=== PATIENT | female | born 1980 | race African-American/Black ===

== ENCOUNTER 2020-05-21 20:54 | Inpatient (IN) | payer OTHER ==
[2020-05-21 21:34] VITALS: BMI 21.9
--- NOTE | 2020-05-21 22:25 | HP ---
CIWA Score Nausea/Vomitin (vomiting x 2) Muscle Tremors: 3 Anxiety: 4-Mod. Anxious/Guarded Agitation: 4-Moderately Restless Paroxysmal Sweats: 2 Orientation: 0-Oriented Tacttile Disturbances: 0-None Auditory Disturbances: 0-None Visual Disturbances: 0-None Headache: 2-Mild CIWA-Ar Total Score: 18 - Admission Criteria OASAS Guidelines: Admission for Medically Managed Detox: Requires at least one of the followin. CIWA greater than 12 2. Seizures within the past 24 hours 3. Delirium tremens within the past 24 hours 4. Hallucinations within the past 24 hours 5. Acute intervention needed for co occurring medical disorder 6. Acute intervention needed for co occurring psychiatric disorder 7. Severe withdrawal that cannot be handled at a lower level of care (continued vomiting, continued diarrhea, abnormal vital signs) requiring intravenous medication and/or fluids 8. Admitting History and Physical - Past Medical History ...LMP: 05/28/13 - Smoking History Smoking history: Current every day smoker Have you smoked in the past 12 months: Yes Aproximately how many cigarettes per day: 5 - Alcohol/Substance Use Hx Alcohol Use: Yes Admission ROS [facility] Chief Complaint: Seeking admission to detox from alcohol Allergies/Adverse Reactions: Allergies Allergy/AdvReac Type Severity Reaction Status Date / Time No Known Allergies Allergy Verified 05/21/20 22:59 History of Present Illness: 40 years old female with a long history of alcohol dependence (since age 24 years) is seeking admission to detox. Patient's last admission at [facility] was for the period 06/14/2013 - 06/18/2013 and she reports a year of sobriety. Her last detox was at [facility] and she relapsed a couple of days post discharge. She has medical history of asthma and psych. history of depression and bipolar disorder. She reports suicide attempt 5 years ago and denies suicidal ideation at this time. 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 She is unemployed on [employer], lives with her sister and denies any legal issues. Exam Limitations: No Limitations - Ebola screening Have you traveled outside of the country in the last 21 days: No Have you had contact with anyone from an Ebola affected area: No Have you been sick,other than usual withdrawal symptoms: No Do you have a fever: No - Review of Systems Constitutional: Chills, Malaise, Night Sweats, Changes in sleep EENT: reports: Nose Congestion Respiratory: reports: No Symptoms reported Cardiac: reports: No Symptoms Reported GI: reports: Nausea, Poor Fluid Intake, Vomiting (x 2), Abdominal cramping : reports: No Symptoms Reported Musculoskeletal: reports: Back Pain, Neck Pain Integumentary: reports: Dryness, Flushing Neuro: reports: Headache, Tremors Endocrine: reports: No Symptoms Reported Hematology: reports: No Symptoms Reported Psychiatric: reports: Orientated x3, Anxious, Depressed Other Systems: Reviewed and Negative Patient History - Patient Medical History Hx Anemia: No Hx Asthma: Yes (mdi-albuterol) Hx Chronic Obstructive Pulmonary Disease (COPD): No Hx Cancer: No Hx Cardiac Disorders: No Hx Congestive Heart Failure: No Hx Hypertension: No Hx Hypercholesterolemia: No Hx Pacemaker: No HX Cerebrovascular Accident: No Hx Seizures: No Hx Dementia: No Hx Diabetes: No Hx Gastrointestinal Disorders: No Hx Liver Disease: No Hx Genitourinary Disorders: No Hx Sexually Transmitted Disorders: No Hx Renal Disease (ESRD): No Hx Thyroid Disease: No Hx Human Immunodeficiency Virus (HIV): No (Negative 2019) Hx Hepatitis C: No Hx Depression: Yes Hx Suicide Attempt: Yes (2010-pill od, denies suicidal ideation at this time) Hx Bipolar Disorder: Yes (multiple admissions >6) Hx Schizophrenia: No - Patient Surgical History Past Surgical History: Yes Hx Neurologic Surgery: No Hx Cataract Extraction: No Hx Cardiac Surgery: No Hx Lung Surgery: No Hx Breast Surgery: No Hx Breast Biopsy: No Hx Abdominal Surgery: No Hx Appendectomy: No Hx Cholecystectomy: No Hx Genitourinary Surgery: No Hx Section: No Hx Orthopedic Surgery: Yes (Left knee 2014) Anesthesia Reaction: No - PPD History Previous Implant?: Yes Documented Results: Positive w/o proof Date: 06/16/13 PPD to be Administered?: Yes - Reproductive History Patient is a Female of Child Bearing Age (11 -55 yrs old): Yes Last Menstrual Period: 04/27/20 Patient : No - Smoking Cessation Smoking history: Current every day smoker Have you smoked in the past 12 months: Yes Aproximately how many cigarettes per day: 10 Hx Chewing Tobacco Use: No Initiated information on smoking cessation: Yes 'Breaking Loose' booklet given: 05/21/20 - Substance & Tx. History Hx Alcohol Use: Yes Hx Substance Use: No Substance Use Type: Alcohol, Cocaine, Marijuana Hx Substance Use Treatment: No - Substances abused Alcohol Substance route: Oral Frequency: Daily Amount used: 2 Pints Vodka Age of first use: 24 Date of last use: 05/21/20 Admission Physical Exam [facility] - Vital Signs Vital Signs: Vital Signs - 24 hr 05/21/20 21:31 Temperature 96.6 F L Pulse Rate 77 Respiratory 18 Rate Blood Pressure 105/76 - Physical General Appearance: Yes: Moderate Distress, Tremorous, Sweating HEENTM: Yes: Within Normal Limits, Hearing grossly Normal Respiratory: Yes: Lungs Clear, Normal Breath Sounds, No Respiratory Distress Neck: Yes: Within Normal Limits Breast: Yes: Breast Exam Deferred Cardiology: Yes: Regular Rhythm, Regular Rate Abdominal: Yes: Normal Bowel Sounds, Soft Genitourinary: Yes: Within Normal Limits Back: Yes: Normal Inspection Musculoskeletal: Yes: Back pain, Other (neck pain) Extremities: Yes: Tremors Neurological: Yes: Within Normal Limits Integumentary: Yes: Warm Lymphatic: Yes: Within Normal Limits - Diagnostic (1) Alcohol dependence with withdrawal, uncomplicated Current Visit: Yes Status: Acute (2) Asthma Current Visit: Yes Status: Chronic Qualifiers: Asthma severity: mild Asthma persistence: intermittent (3) Nicotine dependence Current Visit: Yes Status: Chronic Qualifiers: Nicotine product type: cigarettes Substance use status: uncomplicated Qualified Code(s): F17.210 - Nicotine dependence, cigarettes, uncomplicated (4) Depression Current Visit: Yes Status: Chronic (5) Bipolar disorder Current Visit: Yes Status: Chronic Cleared for Admission [facility] - Detox or Rehab [facility] Level of Care: Medically Managed Detox Regimen/Protocol: Librium Claeared for Rehab Admission: No Breathalyzer - Breathalyzer Breathalyzer: 0 Urine Drug Screen - Test Device Lot number: [id number] Expiration date: 06/24/21 - Control Is test valid?: Yes - Results Drug screen NEGATIVE: No Urine drug screen results: THC-Marijuana, ALBERT-Cocaine Inpatient Rehab Admission - Rehab Decision to Admit Inpatient rehab admission?: No
[2020-05-21] MEDS ORDERED: IBUPROFEN 400 MG TABLET (FP) PO PRN (22:46)
[2020-05-21] MEDS ORDERED: MAGNESIUM CITRATE 300 ML BOTTLE PO PRN (22:46)
[2020-05-21] MEDS ORDERED: MAGNESIUM HYDROX 2400MG/30ML ORAL SUSPENSION 30 ML CUP PO PRN (22:46)
[2020-05-21] MEDS ORDERED: ONDANSETRON *ODT* 4 MG TABLET SL ONE (22:46)
[2020-05-21] MEDS ORDERED: NICOTINE POLACRILEX 2 MG GUM BUC PRN (22:46)
[2020-05-21] MEDS ORDERED: BISMUTH SUBSALICYLATE 524 MG/30 ML UD PO PRN (22:46)
[2020-05-21] MEDS ORDERED: METHOCARBAMOL 500 MG TABLET PO PRN (22:46)
[2020-05-21] MEDS ORDERED: MENTHOL/PHENOL 1 EACH UD MM PRN (22:46)
[2020-05-21] MEDS ORDERED: ACETAMINOPHEN 325 MG TABLET (FP) PO PRN ×2 (22:46)
[2020-05-21] MEDS ORDERED: MAG HYDROX/AL HYDROX/SIMETH 30 ML UNIT-DOSE CUP PO PRN (22:46)
[2020-05-21] MEDS ORDERED: hydrOXYzine PAMOATE 25 MG CAPSULE (FP) PO PRN (22:46)
[2020-05-21] MEDS ORDERED: chlordiazePOXIDE HCL 25 MG CAPSULE PO PRN (22:46)
[2020-05-21] MEDS: chlordiazePOXIDE HCL 25 MG CAPSULE PO SCH (23:31)
[2020-05-22] MEDS: chlordiazePOXIDE HCL 25 MG CAPSULE PO SCH ×4 (05:59→22:41)
--- NOTE | 2020-05-22 09:24 | EKG ---
Test Reason : Blood Pressure : / mmHG Vent. Rate : 068 BPM Atrial Rate : 068 BPM P-R Int : 164 ms QRS Dur : 086 ms QT Int : 410 ms P-R-T Axes : 064 064 057 degrees QTc Int : 435 ms NORMAL SINUS RHYTHM NORMAL ECG NO PREVIOUS ECGS AVAILABLE Confirmed by MD JONEL, IVORY ([id number]) on 05/22/2020 9:24:02 AM Referred By: Blu Roper Confirmed By:IVORY REMY MD
--- NOTE | 2020-05-22 09:49 | PN ---
S CIWA - CIWA Score Nausea/Vomitin-No Nausea/No Vomiting Muscle Tremors: 3 Anxiety: 3 Agitation: 3 Paroxysmal Sweats: 3 Orientation: 0-Oriented Tacttile Disturbances: 0-None Auditory Disturbances: 0-None Visual Disturbances: 0-None Headache: 0-None Present CIWA-Ar Total Score: 12 [facility] Progress Note (SOAP) Subjective: sweats sleepy tired interrupted sleep shakes Objective: 05/22/20 09:48 Vital Signs Temperature 97.3 F L 05/22/20 05:34 Pulse Rate 67 05/22/20 05:34 Respiratory Rate 18 05/22/20 05:34 Blood Pressure 108/64 05/22/20 05:34 O2 Sat by Pulse Oximetry (%) 99 05/22/20 05:34 Laboratory Tests 05/21/20 21:34 POC Urine HCG, Qual Negative rest of labs pending aaox3 ambulating no acute distress Assessment: 05/22/20 09:48 withdrawals Plan: continue detox increase fluids pending labs
[2020-05-22 09:53] LABS: HEMATOCRIT 38.2 % (32.4-45.2); HEMOGLOBIN 12.4 GM/dL (10.7-15.3); MCH 31.2 pg (25.7-33.7); MCHC 32.5 g/dl (32.0-36.0); MEAN CELL VOLUME 96.2 fl (80-96); MEAN PLT VOLUME 9.3 fl (7.5-11.1); PLATELET COUNT 230 K/MM3 (134-434); RBC 3.97 M/mm3 (3.60-5.2); RDW 13.4 % (11.6-15.6); WHITE BLOOD COUNT 4.4 K/mm3 (4.0-10.0)
[2020-05-22 10:11] LABS: BILIRUBIN,TOTAL 0.2 mg/dL (0.2-1); BLOOD UREA NITROGEN 14.5 mg/dL (7-18); CALCIUM 8.7 mg/dL (8.5-10.1); CREATININE 0.9 mg/dL (0.55-1.3); POTASSIUM 3.9 mmol/L (3.5-5.1); TOT PROT 6.3 g/dl (6.4-8.2)
[2020-05-22] MEDS: NICOTINE 14 MG/24 HOURS TOPICAL PATCH TD SCH (10:53)
[2020-05-22] MEDS: PRENATAL VITAMINS W/ FOLIC ACID TABLET (FP) PO SCH (10:53)
--- NOTE | 2020-05-22 13:57 | PN ---
[facility] Progress Note Note: Dock Pumper attempted several times to see patient. She is very sedated with no response to verbal stimuli(loudly calling her name). Please reconsult when patient is more appropriate for interview
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
[2020-05-22] MEDS: THIAMINE HCL 100 MG TABLET (FP) PO SCH (22:17)
[2020-05-22] MEDS: MELATONIN 5 MG TABLETS PO SCH (22:17)
[2020-05-23] MEDS ORDERED: chlordiazePOXIDE HCL 25 MG CAPSULE PO SCH ×2 (05:00→09:26)
--- NOTE | 2020-05-23 10:16 | PN ---
S CIWA - CIWA Score Nausea/Vomitin-No Nausea/No Vomiting Muscle Tremors: 2 Anxiety: 2 Agitation: 2 Paroxysmal Sweats: 2 Orientation: 0-Oriented Tacttile Disturbances: 0-None Auditory Disturbances: 0-None Visual Disturbances: 0-None Headache: 0-None Present CIWA-Ar Total Score: 8 BHS Progress Note (SOAP) Subjective: the librium is making me too sleepy. sweats Objective: 05/23/20 10:16 Vital Signs Temperature 97.7 F 05/23/20 09:19 Pulse Rate 82 05/23/20 09:19 Respiratory Rate 20 05/23/20 09:19 Blood Pressure 101/64 05/23/20 09:19 O2 Sat by Pulse Oximetry (%) 98 05/23/20 09:19 Laboratory Tests 05/21/20 05/21/20 05/22/20 21:34 23:10 08:00 WBC RBC Hgb Hct MCV MCH MCHC RDW Plt Count MPV Sodium Potassium Chloride Carbon Dioxide Anion Gap BUN Creatinine Est GFR (CKD-EPI)AfAm Est GFR (CKD-EPI)NonAf Random Glucose Calcium Total Bilirubin AST ALT Alkaline Phosphatase Total Protein Albumin POC Urine HCG, Qual Negative Syphilis Serology Non-reactive COVID-19 (ZUNILDA) Not detected 05/22/20 05/22/20 08:00 08:00 WBC 4.4 RBC 3.97 Hgb 12.4 Hct 38.2 MCV 96.2 H MCH 31.2 MCHC 32.5 RDW 13.4 Plt Count 230 MPV 9.3 Sodium 142 Potassium 3.9 Chloride 111 H Carbon Dioxide 26 Anion Gap 5 L BUN 14.5 Creatinine 0.9 Est GFR (CKD-EPI)AfAm 91.40 Est GFR (CKD-EPI)NonAf 78.86 Random Glucose 120 H Calcium 8.7 Total Bilirubin 0.2 AST 14 L ALT 18 Alkaline Phosphatase 61 Total Protein 6.3 L Albumin 3.0 L POC Urine HCG, Qual Syphilis Serology COVID-19 (ZUNILDA) Assessment: 05/23/20 10:16 withdrawals Plan: pt agreed to have her librium adjusted. d/c 25mg of librium, start with 15mg of librium and taper her doses increase fluids
[2020-05-23] MEDS: NICOTINE 14 MG/24 HOURS TOPICAL PATCH TD SCH (10:38)
[2020-05-23] MEDS: chlordiazePOXIDE 5 MG CAPSULE PO SCH ×3 (10:38→22:05)
[2020-05-23] MEDS: PRENATAL VITAMINS W/ FOLIC ACID TABLET (FP) PO SCH (10:38)
[2020-05-23] MEDS: MELATONIN 5 MG TABLETS PO SCH (22:05)
[2020-05-23] MEDS: THIAMINE HCL 100 MG TABLET (FP) PO SCH (22:05)
[2020-05-24] MEDS ORDERED: chlordiazePOXIDE HCL 10 MG CAPSULE PO PRN
[2020-05-24] MEDS: chlordiazePOXIDE HCL 10 MG CAPSULE PO SCH ×2 (06:54→11:32)
[2020-05-24] MEDS ORDERED: ONDANSETRON *ODT* 4 MG TABLET SL PRN (10:20)
--- NOTE | 2020-05-24 11:01 | PN ---
[facility] CIWA - CIWA Score Nausea/Vomitin-Mild Nausea/No Vomiting Muscle Tremors: 1-None Visible, but Parks Anxiety: 0-No Anxiety, at Ease Agitation: 1-Slight > Activity Paroxysmal Sweats: 1-Minimal Palms Moist Orientation: 0-Oriented Tacttile Disturbances: 0-None Auditory Disturbances: 0-None Visual Disturbances: 0-None Headache: 0-None Present CIWA-Ar Total Score: 4 BHS Progress Note (SOAP) Subjective: nausea sweats Objective: 05/24/20 11:01 Vital Signs Temperature 97.3 F L 05/24/20 08:59 Pulse Rate 88 05/24/20 08:59 Respiratory Rate 18 05/24/20 08:59 Blood Pressure 115/62 05/24/20 08:59 O2 Sat by Pulse Oximetry (%) 99 05/24/20 08:59 aaox3 ambulating no acute distress Assessment: 05/24/20 11:01 withdrawals Plan: continue detox increase fluids russel slater
[2020-05-24] MEDS: PRENATAL VITAMINS W/ FOLIC ACID TABLET (FP) PO SCH (11:31)
[2020-05-24] MEDS: NICOTINE 14 MG/24 HOURS TOPICAL PATCH TD SCH (11:32)
[2020-05-24 18:34] VITALS: BP 115/62; PULSE 82; TEMP 98.2
--- NOTE | 2020-05-24 18:37 | DS ---
[facility] Detox Discharge Summary Admission Date: 05/21/20 Discharge Date: 05/24/20 - History Additional Comments: Patient is being discharged to home. She reports that she has to visit her in a [place] out of state and her train is scheduled to depart tomorrow at 6.45AM from [facility]. Patient is stable, alert and oriented x 3, in no acute distress, ambulating with a steady gait and vital signs stable. No withdrawal symptoms noted or reported and patient is medically stable to go home as she was safely detoxed and responded well to detox. [employer] card provided by [employer]. Patient reports that she has a scheduled appointment with her psychiatrist and will continue her medications. Discharge was done in 30 minutes. Pertinent Past History: Alcohol dependence Asthma Bipolar disorder Depression Nicotine dependence - Physical Exam Results Vital Signs: Vital Signs Temperature 97.4 F L 05/24/20 12:46 Pulse Rate 72 05/24/20 12:46 Respiratory Rate 18 05/24/20 12:46 Blood Pressure 138/78 05/24/20 12:46 O2 Sat by Pulse Oximetry (%) 99 05/24/20 12:46 Vital Signs Temperature 98.2 F 05/24/20 17:10 Pulse Rate 82 05/24/20 17:10 Respiratory Rate 18 05/24/20 17:10 Blood Pressure 115/62 05/24/20 17:10 O2 Sat by Pulse Oximetry (%) 99 05/24/20 17:10 Laboratory Last Values WBC 4.4 K/mm3 (4.0-10.0) 05/22/20 08:00 RBC 3.97 M/mm3 (3.60-5.2) 05/22/20 08:00 Hgb 12.4 GM/dL (10.7-15.3) 05/22/20 08:00 Hct 38.2 % (32.4-45.2) 05/22/20 08:00 MCV 96.2 fl (80-96) H 05/22/20 08:00 MCH 31.2 pg (25.7-33.7) 05/22/20 08:00 MCHC 32.5 g/dl (32.0-36.0) 05/22/20 08:00 RDW 13.4 % (11.6-15.6) 05/22/20 08:00 Plt Count 230 K/MM3 (134-434) 05/22/20 08:00 MPV 9.3 fl (7.5-11.1) 05/22/20 08:00 Sodium 142 mmol/L (136-145) 05/22/20 08:00 Potassium 3.9 mmol/L (3.5-5.1) 05/22/20 08:00 Chloride 111 mmol/L (98-107) H 05/22/20 08:00 Carbon Dioxide 26 mmol/L (21-32) 05/22/20 08:00 Anion Gap 5 MMOL/L (8-16) L 05/22/20 08:00 BUN 14.5 mg/dL (7-18) 05/22/20 08:00 Creatinine 0.9 mg/dL (0.55-1.3) 05/22/20 08:00 Est GFR (CKD-EPI)AfAm 91.40 05/22/20 08:00 Est GFR (CKD-EPI)NonAf 78.86 05/22/20 08:00 Random Glucose 120 mg/dL (74-106) H 05/22/20 08:00 Calcium 8.7 mg/dL (8.5-10.1) 05/22/20 08:00 Total Bilirubin 0.2 mg/dL (0.2-1) 05/22/20 08:00 AST 14 U/L (15-37) L 05/22/20 08:00 ALT 18 U/L (13-61) 05/22/20 08:00 Alkaline Phosphatase 61 U/L (45-117) 05/22/20 08:00 Total Protein 6.3 g/dl (6.4-8.2) L 05/22/20 08:00 Albumin 3.0 g/dl (3.4-5.0) L 05/22/20 08:00 POC Urine HCG, Qual Negative 05/21/20 21:34 Syphilis Serology Non-reactive (NONREACTIVE) 05/22/20 08:00 COVID-19 (ZUNILDA) Not detected (Not Detected) 05/21/20 23:10 Labs reviewed with patient Pertinent Admission Physical Exam Findings: Alcohol withdrawal symptoms - Treatment Hospital Course: Detoxed Safely, Responded well, Discharged Condition Good - Medication Discharge Medications: Ambulatory Orders Risperidone [Risperdal -] 3 mg PO BID 06/14/13 traZODone HCL [Desyrel -] 100 mg PO HS 06/14/13 - Diagnosis (1) Alcohol dependence with withdrawal, uncomplicated Status: Chronic (2) Asthma Status: Chronic Qualifiers: Asthma severity: mild Asthma persistence: intermittent (3) Nicotine dependence Status: Chronic Qualifiers: Nicotine product type: cigarettes Substance use status: uncomplicated Qualified Code(s): F17.210 - Nicotine dependence, cigarettes, uncomplicated (4) Depression Status: Chronic (5) Bipolar disorder Status: Chronic - AMA Did Patient Leave Against Medical Advice: No
[2020-05-25] MEDS ORDERED: chlordiazePOXIDE HCL 10 MG CAPSULE PO SCH (05:00)
[2020-05-26] MEDS ORDERED: chlordiazePOXIDE HCL 10 MG CAPSULE PO ONE (05:00)
== END 2020-05-24 18:20 | disposition home or self-care (01) | DRG 775 ==
LOC: YASAS 20:54 → Y6N 22:51
PROVIDERS: ADMIT Allergy & Immunology; ATTEND Allergy & Immunology
PROC: HZ2ZZZZ Detoxification Services for Substance Abuse Treatment (ICD-10-PCS; principal; 2020-05-21)
DX: F10.230 Alcohol dependence with withdrawal, uncomplicated (principal); F17.210 Nicotine dependence, cigarettes, uncomplicated; F31.9 Bipolar disorder, unspecified; J45.20 Mild intermittent asthma, uncomplicated; R51 Headache; Y04.2XXA Assault by strike against or bumped into by another person, initial encounter; Y93.89 Activity, other specified; Y92.239 Unspecified place in hospital as the place of occurrence of the external cause; Y99.8 Other external cause status; Z91.5 Personal history of self-harm; Z56.0 Unemployment, unspecified
CPT/HCPCS: 36415; 80053; 81025; 85027; 86780; 93005; 93010; Q0162; U0003

== ENCOUNTER 2021-01-02 10:54 | Inpatient (IN) | payer OTHER ==
[2021-01-02 12:50] VITALS: BMI 20.9
[2021-01-02] MEDS ORDERED: MAGNESIUM HYDROX 2400MG/30ML ORAL SUSPENSION 30 ML CUP PO PRN (13:26)
[2021-01-02] MEDS ORDERED: NICOTINE POLACRILEX 2 MG GUM BUC PRN (13:26)
[2021-01-02] MEDS ORDERED: ONDANSETRON *ODT* 4 MG TABLET SL PRN (13:26)
[2021-01-02] MEDS ORDERED: chlordiazePOXIDE HCL 25 MG CAPSULE PO PRN (13:26)
[2021-01-02] MEDS ORDERED: BISMUTH SUBSALICYLATE 262 MG/15 ML BTL PO PRN (13:26)
[2021-01-02] MEDS ORDERED: MAGNESIUM CITRATE 300 ML BOTTLE PO PRN (13:26)
[2021-01-02] MEDS ORDERED: IBUPROFEN 400 MG TABLET (FP) PO PRN (13:26)
[2021-01-02] MEDS ORDERED: MENTHOL/PHENOL 1 EACH UD MM PRN (13:26)
[2021-01-02] MEDS ORDERED: METHOCARBAMOL 500 MG TABLET PO PRN (13:26)
[2021-01-02] MEDS ORDERED: MAG HYDROX/AL HYDROX/SIMETH 30 ML UNIT-DOSE CUP PO PRN (13:26)
[2021-01-02] MEDS ORDERED: ACETAMINOPHEN 325 MG TABLET (FP) PO PRN ×2 (13:26)
[2021-01-02 15:24] LABS: HEMATOCRIT 42.8 % (32.4-45.2); HEMOGLOBIN 14.6 GM/dL (10.7-15.3); MCH 32.1 pg (25.7-33.7); MEAN CELL VOLUME 94.2 fl (80-96); MEAN PLT VOLUME 8.3 fl (7.5-11.1); PLATELET COUNT 282 K/MM3 (134-434); RBC 4.55 M/mm3 (3.60-5.2); RDW 14.4 % (11.6-15.6); WHITE BLOOD COUNT 4.6 K/mm3 (4.0-10.0)
[2021-01-02 15:30] LABS: POTASSIUM 4.9 mmol/L (3.5-5.1)
[2021-01-02 15:40] LABS: CALCIUM 9.7 mg/dL (8.5-10.1)
[2021-01-02 15:41] LABS: ALBUMIN 3.9 g/dl (3.4-5.0); BLOOD UREA NITROGEN 8.2 mg/dL (7-18)
[2021-01-02 15:44] LABS: BILIRUBIN,TOTAL 0.4 mg/dL (0.2-1); CREATININE 0.9 mg/dL (0.55-1.3)
[2021-01-02] MEDS: NICOTINE 14 MG/24 HOURS TOPICAL PATCH TD SCH (18:06)
[2021-01-02] MEDS: hydrOXYzine PAMOATE 25 MG CAPSULE (FP) PO SCH ×3 (18:07→22:48)
[2021-01-02] MEDS: PRENATAL VITAMINS W/ FOLIC ACID TABLET (FP) PO SCH (18:07)
[2021-01-02] MEDS: chlordiazePOXIDE HCL 25 MG CAPSULE PO SCH ×2 (18:07→22:48)
[2021-01-02] MEDS: MELATONIN 5 MG TABLETS PO SCH (22:48)
[2021-01-02] MEDS: THIAMINE HCL 100 MG TABLET (FP) PO SCH (22:48)
[2021-01-03] MEDS: chlordiazePOXIDE HCL 25 MG CAPSULE PO SCH ×4 (06:18→23:57)
[2021-01-03] MEDS: hydrOXYzine PAMOATE 25 MG CAPSULE (FP) PO SCH ×5 (06:18→23:58)
[2021-01-03] MEDS: PRENATAL VITAMINS W/ FOLIC ACID TABLET (FP) PO SCH (10:53)
[2021-01-03] MEDS: NICOTINE 14 MG/24 HOURS TOPICAL PATCH TD SCH (10:53)
[2021-01-03] MEDS: THIAMINE HCL 100 MG TABLET (FP) PO SCH (23:58)
[2021-01-03] MEDS: MELATONIN 5 MG TABLETS PO SCH (23:58)
[2021-01-04] MEDS: hydrOXYzine PAMOATE 25 MG CAPSULE (FP) PO SCH ×5 (06:34→22:40)
[2021-01-04] MEDS: chlordiazePOXIDE HCL 25 MG CAPSULE PO SCH ×4 (06:35→22:40)
[2021-01-04] MEDS: NICOTINE 14 MG/24 HOURS TOPICAL PATCH TD SCH (11:02)
[2021-01-04] MEDS: PRENATAL VITAMINS W/ FOLIC ACID TABLET (FP) PO SCH (11:02)
[2021-01-04] MEDS: MELATONIN 5 MG TABLETS PO SCH (22:40)
[2021-01-04] MEDS: THIAMINE HCL 100 MG TABLET (FP) PO SCH (22:40)
[2021-01-05] MEDS ORDERED: chlordiazePOXIDE HCL 10 MG CAPSULE PO PRN
[2021-01-05] MEDS: hydrOXYzine PAMOATE 25 MG CAPSULE (FP) PO SCH ×5 (07:29→23:09)
[2021-01-05] MEDS: chlordiazePOXIDE HCL 10 MG CAPSULE PO SCH ×4 (07:29→23:10)
[2021-01-05] MEDS: PRENATAL VITAMINS W/ FOLIC ACID TABLET (FP) PO SCH (10:31)
[2021-01-05] MEDS: NICOTINE 14 MG/24 HOURS TOPICAL PATCH TD SCH (10:31)
[2021-01-05] MEDS: THIAMINE HCL 100 MG TABLET (FP) PO SCH (23:09)
[2021-01-05] MEDS: MELATONIN 5 MG TABLETS PO SCH (23:09)
[2021-01-05] MEDS: PANTOPRAZOLE 20 MG TABLET PO SCH (23:09)
[2021-01-06] MEDS: chlordiazePOXIDE HCL 10 MG CAPSULE PO SCH ×2 (07:43→18:39)
[2021-01-06] MEDS: hydrOXYzine PAMOATE 25 MG CAPSULE (FP) PO SCH ×5 (07:44→22:56)
[2021-01-06] MEDS: PRENATAL VITAMINS W/ FOLIC ACID TABLET (FP) PO SCH (10:53)
[2021-01-06] MEDS: NICOTINE 14 MG/24 HOURS TOPICAL PATCH TD SCH (10:54)
[2021-01-06] MEDS: PANTOPRAZOLE 20 MG TABLET PO SCH ×2 (10:54→22:57)
[2021-01-06] MEDS: THIAMINE HCL 100 MG TABLET (FP) PO SCH (22:56)
[2021-01-06] MEDS: MELATONIN 5 MG TABLETS PO SCH (22:57)
[2021-01-07] MEDS ORDERED: chlordiazePOXIDE HCL 10 MG CAPSULE PO ONE (05:00)
[2021-01-07] MEDS: hydrOXYzine PAMOATE 25 MG CAPSULE (FP) PO SCH ×2 (06:26→10:45)
[2021-01-07 07:55] VITALS: BP 91/59; PULSE 74; TEMP 97.8
[2021-01-07] MEDS: NICOTINE 14 MG/24 HOURS TOPICAL PATCH TD SCH (10:45)
[2021-01-07] MEDS: PRENATAL VITAMINS W/ FOLIC ACID TABLET (FP) PO SCH (10:45)
[2021-01-07] MEDS: PANTOPRAZOLE 20 MG TABLET PO SCH (10:45)
== END 2021-01-07 10:14 | disposition other institution (70) | DRG 774 ==
LOC: YASAS 10:54 → Y3N 13:45
PROVIDERS: ADMIT Allergy & Immunology; ATTEND Allergy & Immunology
PROC: HZ2ZZZZ Detoxification Services for Substance Abuse Treatment (ICD-10-PCS; principal; 2021-01-02)
DX: F10.230 Alcohol dependence with withdrawal, uncomplicated (principal); F14.20 Cocaine dependence, uncomplicated; F12.20 Cannabis dependence, uncomplicated; F17.210 Nicotine dependence, cigarettes, uncomplicated; F31.9 Bipolar disorder, unspecified; F19.24 Other psychoactive substance dependence with psychoactive substance-induced mood disorder; G47.00 Insomnia, unspecified; J45.20 Mild intermittent asthma, uncomplicated; F20.9 Schizophrenia, unspecified; M54.5 Low back pain; G89.29 Other chronic pain; R63.4 Abnormal weight loss; Z68.21 Body mass index [BMI] 21.0-21.9, adult; Z91.19 Patient's noncompliance with other medical treatment and regimen; Z56.0 Unemployment, unspecified
CPT/HCPCS: 36415; 80053; 81025; 85027; 86780; C9803; Q0162; U0003